=== PATIENT | male | born 1960 | race African-American/Black ===

== ENCOUNTER 2017-07-29 12:04 | Inpatient (IN) | payer OTHER ==
--- NOTE | 2017-07-29 12:05 | HP ---
SUPERVISING PHYSICIAN: Tramaine Peter MD CHIEF COMPLAINT: Chills and fever for the past three days. HISTORY OF PRESENT ILLNESS: This is a 57 year-old male patient who was has been having bouts of fever with severe chills since Wednesday. He went to see his primary care physician, Dr. Navjot Chen, at [facility] and a chest x-ray was done which revealed a left lower lobe pneumonia. He also had a white count of 16.6 with a negative flu swab. He was running a temperature of greater than 104 at the clinic. He also complained of muscle aches and pain and Dr. Chen called me for admission to the hospital. PAST MEDICAL HISTORY: 1. Left foot neuropathy. PAST SURGICAL HISTORY: None. OUTPATIENT MEDICATIONS: 1. Gabapentin. ALLERGIES: NO KNOWN DRUG ALLERGIES. FAMILY HISTORY: His father had heart problems and cancer of unknown type. His mother had hypertension. SOCIAL HISTORY: He is retired from the [employer]. He works part-time at [employer] He has smoked cigarettes for about 30 years but over the last month or so he has decreased his smoking to about 6 to 7 cigarettes daily. He drinks alcohol on a social basis only and denies any illicit drug use. REVIEW OF SYSTEMS: GENERAL: Positive for fever and fatigue, negative for weight changes. HEENT: Positive for some sinus and cold-like symptoms. Negative for ear pain, sore throat or vision changes. RESPIRATORY: Positive for mild dry cough but has significant shortness of breath with any exertion. Denies wheezing. CARDIOVASCULAR: Denies chest pain, palpitations or tachycardia. GI: Denies abdominal pain, nausea, vomiting, diarrhea, constipation. : Denies hematuria , dysuria or polyuria. SKIN: Denies lesions or rashes. NEURO: Positive for weakness, negative for headaches or seizures. PHYSICAL EXAMINATION: VITAL SIGNS: Temperature 102.5, pulse rate 134, blood pressure at the clinic was 88/60, this has improved now to 115/73. Respiratory rate is 20. 02 saturation 91% on room air. GENERAL: This is a 57 y over -[place] male who is lying in his hospital bed. He is in mild respiratory distress. HEENT: Normocephalic and atraumatic. Pupils are equal and reactive. Oropharynx is clear. Oral mucous membranes are dry. NECK: Supple without mass. CHEST: Coarse rhonchi scattered throughout, very diminished at the bases, especially on the left side and he does have a few scattered expiratory wheezes on that left side. He is slightly tachypneic; with a respiratory rate about 22 breaths per minute. CARDIOVASCULAR: Tachycardiac rate, regular rhythm. ABDOMEN: Soft, nondistended, non-tender. Bowel sounds are positive. EXTREMITIES: No cyanosis, clubbing, or edema. INTEGUMENT: No lesions or rashes noted. NEUROLOGIC: He is awake, alert, and oriented x3. LABORATORY: As per the history of present illness plus his sodium is 134, potassium 3.6, chloride 101, BUN 40, creatinine 1.64. His baseline creatinine here is approximately 1. His lactic acid is 1.4. His influenza swab via PCR is negative. Chest x-ray shows infiltrates at the posterior heart on the lateral view and positive for left lower lobe pneumonia. All other labs and films have been reviewed via the EMR. ASSESSMENT: 1. Sepsis related to left lower lobe pneumonia. The patient meets criteria with a temperature of 102.5, heart rate of 134, respiratory rate 22, WBC of 16.6. 2. Dehydration most likely secondary to #1, currently being given aggressive fluids. 3. Febrile illness most likely secondary to #1. 4. Acute renal failure with creatinine of 1.64 and most likely secondary to infectious process as well as dehydration. 5. Left leg neuropathy. PLAN: We will admit patient to the hospital. I have initiated pneumonia guidelines, presently giving him some fluids and I have started him on Rocephin b.i.d. as well as azithromycin IV antibiotics, Protonix for ulcer prophylaxis as well as Lovenox for DVT prophylaxis. I have ordered aggressive pulmonary hygiene. I am going to give him a low-dose of steroids and he will be on breathing treatments, will scheduled them as needed, routine labs for in the morning as well as a chest x-ray. We have started his home medications and will known to to monitor the patient closely and follow as needed. Dr. Peter is the collaborating physician and available for consultation. #[id number] [facility]
[2017-07-29] MEDS ORDERED: ALBUTEROL SULFATE 2.5 MG/3 ML VIAL NEB PRN (12:09)
[2017-07-29] MEDS ORDERED: SODIUM CHLORIDE 0.9% 1000ML 1,000 ML IVS ONE (12:09)
[2017-07-29] MEDS ORDERED: SODIUM CHLORIDE 0.9% (FLUSH) 10 ML SYG IV PRN (12:09)
[2017-07-29] MEDS: IV SET AND CAP CHANGE INJ INJ SCH (12:30)
[2017-07-29] MEDS: ENOXAPARIN SODIUM 40 MG/0.4 ML SYG SUBCU SCH (13:00)
[2017-07-29] MEDS ORDERED: PANTOPRAZOLE SODIUM IV 40 MG VIAL IV SCH (13:00)
[2017-07-29] MEDS ORDERED: AZITHROMYCIN IV 500 MG in SODIUM CHLORIDE 0.9% 250ML 250 ML IVPB SCH (13:30)
[2017-07-29] MEDS ORDERED: SODIUM CHLORIDE 0.9% 250ML 250 ML ONE (14:11)
[2017-07-29] MEDS ORDERED: AZITHROMYCIN IV 500 MG VIAL IVPB ONE (14:12)
[2017-07-29] MEDS: ACETAMINOPHEN 325 MG TAB PO PRN (15:17)
[2017-07-29] MEDS: ALBUTEROL SULFATE 2.5 MG/3 ML VIAL NEB SCH ×3 (15:52→21:30)
[2017-07-29] MEDS ORDERED: methylPREDNISolone SODIUM SUC 125 MG/2 ML VIAL IV ONE (16:05)
[2017-07-29] MEDS: GABAPENTIN 100 MG CAP PO SCH ×2 (16:21→20:52)
[2017-07-29] MEDS ORDERED: guaiFENesin ER TAB 600 MG TAB ONE (19:39)
[2017-07-29] MEDS ORDERED: cefTRIAXone SODIUM 1 GM VIAL ONE (19:39)
[2017-07-29] MEDS ORDERED: SODIUM CHL 0.9% 50ML MIN-BAG+ 50 ML IVPB ONE (19:39)
[2017-07-29] MEDS: cefTRIAXone SODIUM 1 GM in SODIUM CHL 0.9% 50ML MIN-BAG+ 50 ML IVPB SCH (20:52)
[2017-07-29] MEDS: guaiFENesin ER TAB 600 MG TAB PO SCH (20:52)
[2017-07-29] MEDS: SODIUM CHLORIDE 0.9% (FLUSH) 10 ML SYG IV SCH (20:55)
[2017-07-29] MEDS ORDERED: PANTOPRAZOLE SODIUM TAB 40 MG PO ONE (21:17)
[2017-07-29] MEDS ORDERED: methylPREDNISolone SODIUM SUC 40 MG/ML VIAL ONE (22:08)
[2017-07-30] MEDS: methylPREDNISolone SODIUM SUC 40 MG/ML VIAL IV SCH ×2 (00:30→13:01)
[2017-07-30] MEDS: PANTOPRAZOLE SODIUM TAB 40 MG PO SCH (06:03)
--- NOTE | 2017-07-30 06:58 | RAD ---
EXAM DESCRIPTION: Chest,2 Views CLINICAL HISTORY: Pneumonia COMPARISON: July 26, 2011 FINDINGS: The cardiomediastinal silhouette is unremarkable. Airspace consolidation is noted in the posterior lung bases on the lateral view, likely involving the left lung base. No pleural effusion. A small nodular opacity projects over the right lung apex. There is no pneumothorax or acute fracture. IMPRESSION: Left basilar pneumonia. Follow-up chest radiograph after treatment is recommended to document complete resolution. Small right apical lung nodule, chest CT should be considered for further evaluation. Electronically signed by: Asif Child MD 07/30/2017 6:57 AM [facility]
--- NOTE | 2017-07-30 06:58 | RAD ---
EXAM DESCRIPTION: Chest,2 Views CLINICAL HISTORY: Pneumonia COMPARISON: July 26, 2011 FINDINGS: The cardiomediastinal silhouette is unremarkable. Airspace consolidation is noted in the posterior lung bases on the lateral view, likely involving the left lung base. No pleural effusion. A small nodular opacity projects over the right lung apex. There is no pneumothorax or acute fracture. IMPRESSION: Left basilar pneumonia. Follow-up chest radiograph after treatment is recommended to document complete resolution. Small right apical lung nodule, chest CT should be considered for further evaluation. Electronically signed by: Asif Child MD 07/30/2017 6:57 AM [facility]
--- NOTE | 2017-07-30 06:58 | RAD ---
EXAM DESCRIPTION: Chest,2 Views CLINICAL HISTORY: Pneumonia COMPARISON: July 26, 2011 FINDINGS: The cardiomediastinal silhouette is unremarkable. Airspace consolidation is noted in the posterior lung bases on the lateral view, likely involving the left lung base. No pleural effusion. A small nodular opacity projects over the right lung apex. There is no pneumothorax or acute fracture. IMPRESSION: Left basilar pneumonia. Follow-up chest radiograph after treatment is recommended to document complete resolution. Small right apical lung nodule, chest CT should be considered for further evaluation. Electronically signed by: Asif Child MD 07/30/2017 6:57 AM [facility]
[2017-07-30] MEDS: ALBUTEROL SULFATE 2.5 MG/3 ML VIAL NEB SCH ×4 (07:53→20:40)
[2017-07-30] MEDS ORDERED: SODIUM CHL 0.9% 50ML MIN-BAG+ 50 ML IVPB ONE ×2 (08:26→19:12)
[2017-07-30] MEDS ORDERED: cefTRIAXone SODIUM 1 GM VIAL ONE ×2 (08:26→19:12)
[2017-07-30] MEDS: cefTRIAXone SODIUM 1 GM in SODIUM CHL 0.9% 50ML MIN-BAG+ 50 ML IVPB SCH ×2 (09:02→20:30)
[2017-07-30] MEDS: ENOXAPARIN SODIUM 40 MG/0.4 ML SYG SUBCU SCH (09:02)
[2017-07-30] MEDS: GABAPENTIN 100 MG CAP PO SCH ×3 (09:02→20:30)
[2017-07-30] MEDS: SODIUM CHLORIDE 0.9% (FLUSH) 10 ML SYG IV SCH ×2 (09:02→20:30)
[2017-07-30] MEDS: guaiFENesin ER TAB 600 MG TAB PO SCH ×2 (09:02→20:30)
[2017-07-30] MEDS: AZITHROMYCIN 250 MG TAB PO SCH (13:02)
--- NOTE | 2017-07-30 15:36 | PCM.CORE ---
Physician DVT/VTE - Nurse DVT Assessment & Total Each Risk Factor Represents 3 Points: Medical PT with Hx of AL, CHF, Severe infection/sepsis Each Risk Factor Represents 1 Point: Age 41-60 Each Risk Factor is 1 Point: Serious Lung disease (pnemonia <1month, COPD, emphysema,etc) DVT Assessment Score: 5 - 5 or more Very High Risk Treatments: Early Ambulation *, Sequential Compression Device Pharmacological: Enoxaparin 40mg SQ Daily
--- NOTE | 2017-07-30 18:27 | PN ---
DATE: 07/30/17 SUPERVISING PHYSICIAN: Tramaine Peter M.D. SUBJECTIVE: The patient has been afebrile since admission. He continues to have a productive cough. Notes that he feels a little bit better, but continues to have some body aches and some chills. OBJECTIVE: VITAL SIGNS: T max 99.6, pulse 93, blood pressure 133/76, respirations 18, satting 97% on room air. I's and O's show a positive balance of 120 with 970 in, 850 out. Weight is 73.6 kg. LUNGS: Lung sounds are notable for continued rhonchi heard more prominent on the left posterior aspect with no notable wheezing. HEART: Regular rate and rhythm. ABDOMEN: Soft, non- tender. Positive bowel sounds. EXTREMITIES: No clubbing, cyanosis or edema. NEUROLOGIC: He is alert and oriented times three. LABORATORY: White count 13,700, hemoglobin 10.6, hematocrit 32.3, platelet count 198,000. Differential does show a left shift. Chemistries today show normal electrolytes with potassium 3.7, BUN 30, creatinine 1.35, glucose 202, calcium 8.3. MICROBIOLOGY: Sputum culture is still pending. Blood cultures show a positive blood culture on 1 aerobic bottle, the remaining blood cultures remain negative at 24 hours. Sputum gram stain showed many WBCs with gram positive cocci in chains and pairs. RADIOLOGY: Chest x-ray today two view chest shows left basilar pneumonia with a small right apical lung nodule. ASSESSMENT: 1. Left lower lobe pneumonia community acquired with positive blood cultures concerning for possible Streptococcus pneumoniae. 2. Sepsis secondary to left lower lobe pneumonia with bacteremia with gram positive cocci with cultures pending with concerns for possible Streptococcus pneumoniae. 3. Dehydration secondary to #1 showing improvement after given IV fluids. 4. Febrile illness secondary to #1. 5. Acute renal failure with creatinine 1.64 exacerbated by underlying sepsis process and prerenal azotemia showing improvement with IV fluids. 6. Left leg neuropathy. PLAN: Will continue with aggressive pulmonary hygiene and antibiotic therapy to include azithromycin and Rocephin. Given that he had a set of blood cultures positive, will continue with Rocephin and azithromycin given suspect possible Strep pneumoniae and await those final culture results. Will start tapering his steroid dose today to a p.o. dose as he is showing good improvement and no longer has any significant wheezing. Will plan to repeat laboratory studies in the morning and monitor his cultures, including sputum and blood cultures closely to further target antibiotic therapy as those culture results become available. Until discharge, will continue to monitor and treat appropriately. #[id number] [facility]
[2017-07-31] MEDS: PANTOPRAZOLE SODIUM TAB 40 MG PO SCH (06:15)
[2017-07-31] MEDS: ALBUTEROL SULFATE 2.5 MG/3 ML VIAL NEB SCH ×4 (07:20→20:46)
[2017-07-31] MEDS ORDERED: SODIUM CHL 0.9% 50ML MIN-BAG+ 50 ML IVPB ONE ×2 (08:16→10:38)
[2017-07-31] MEDS ORDERED: cefTRIAXone SODIUM 1 GM VIAL ONE ×2 (08:17→10:39)
[2017-07-31] MEDS: cefTRIAXone SODIUM 1 GM in SODIUM CHL 0.9% 50ML MIN-BAG+ 50 ML IVPB SCH (08:22)
[2017-07-31] MEDS: guaiFENesin ER TAB 600 MG TAB PO SCH ×2 (08:23→20:31)
[2017-07-31] MEDS: SODIUM CHLORIDE 0.9% (FLUSH) 10 ML SYG IV SCH ×2 (08:23→21:47)
[2017-07-31] MEDS: ASPIRIN EC 81 MG TAB PO SCH (08:23)
[2017-07-31] MEDS: ENOXAPARIN SODIUM 40 MG/0.4 ML SYG SUBCU SCH (08:23)
[2017-07-31] MEDS: GABAPENTIN 100 MG CAP PO SCH ×4 (08:23→20:31)
[2017-07-31] MEDS ORDERED: cefTRIAXone SODIUM 1 GM in SODIUM CHL 0.9% 50ML MIN-BAG+ 50 ML IVPB ONE (08:28)
[2017-07-31] MEDS ORDERED: VANCOMYCIN PER PHARMACY IVPB SCH (08:30)
[2017-07-31] MEDS ORDERED: cefTRIAXone SODIUM 2 GM in SODIUM CHL 0.9% 100ML MINI-BAG 100 ML IVPB SCH (08:30)
[2017-07-31] MEDS ORDERED: POTASSIUM CHLORIDE 20 MEQ TAB PO ONE (08:31)
[2017-07-31] MEDS: ACETAMINOPHEN 325 MG TAB PO PRN ×2 (08:37→20:30)
--- NOTE | 2017-07-31 09:04 | RAD ---
PROCEDURE: Chest,2 Views CLINICAL HISTORY: pneumonia INDICATION: Same as above COMPARISON: 07/30/2017 and 07/26/2011 TECHNIQUE: PA and and lateral chest radiographs were obtained. FINDINGS: Note is again made of a partially obscured 8 mm right apical lung nodule, unchanged . There is no significant interval change in the mild left basilar infiltrate/atelectasis There are no pneumothoraces or pleural effusions. Underlying changes of COPD are again noted The cardiomediastinal silhouette is stable. IMPRESSION: Note is again made of a partially obscured 8 mm right apical lung nodule, unchanged . This finding can be further assessed with a dedicated CT of the chest . There is no significant interval change in the mild left basilar infiltrate/atelectasis Electronically signed by: Maurice Walker MD 07/31/2017 9:02 AM [facility] Workstation: [id number]
[2017-07-31] MEDS ORDERED: SODIUM CHLORIDE 0.9% 250ML 250 ML ONE ×2 (10:38→20:12)
[2017-07-31] MEDS ORDERED: VANCOMYCIN HCL INJ 1,000 MG VIAL IVPB ONE ×2 (10:39→20:13)
[2017-07-31] MEDS: VANCOMYCIN HCL INJ 1,000 MG in SODIUM CHLORIDE 0.9% 250ML 250 ML IVPB SCH ×2 (12:01→22:53)
[2017-07-31] MEDS: AZITHROMYCIN 250 MG TAB PO SCH (15:36)
--- NOTE | 2017-07-31 17:52 | PN ---
DATE: 07/31/17 SUPERVISING PHYSICIAN: Tramaine Peter M.D. SUBJECTIVE: The patient is resting in bed. He has no complaints. He says he feels better. He has been tolerating his diet. He has been afebrile since admission. OBJECTIVE: VITAL SIGNS: Temperature 97.9, pulse 78, blood pressure 112/68, respirations 16, satting 97% on room air. I's and O's show a positive balance of 430 with 1180 in, 750 out. Weight is 74.2 kg. CHEST: Lungs are fairly clear except for just an area of rhonchi heard on the posterior left lower lobe , but no wheezing. HEART: Regular rate and rhythm. ABDOMEN: Soft, non-tender. Positive bowel sounds. EXTREMITIES: No clubbing, cyanosis or edema. NEUROLOGIC: He is alert and oriented times three. LABORATORY: White count is still elevated at 14,200, hemoglobin is stable at 9.9 and 28.8 with platelets 214,000. Differential continues to show a left shift. Chemistries show just a mild hypokalemia with potassium 3.4, BUN 31, creatinine is down to 1.06. Serum osmolality 287, magnesium 2.9, calcium 8.8. MICROBIOLOGY: Sputum culture preliminary shows gram positive cocci. He had 1 aerobic bottle that showed gram positive cocci, the other bottles remain negative at 48 hours. RADIOLOGY: Repeat chest x-ray today per radiology interpretation of two view chest shows note is made again of partially obscured 8 mm right apical lung nodule unchanged and no significant interval change in the mid left basilar infiltrate/atelectasis. ASSESSMENT: 1. Left lower lobe pneumonia community acquired with positive blood cultures concerning for possible Streptococcus pneumoniae showing gram positive cocci awaiting final culture results. 2. Sepsis with bacteremia secondary to left lower lobe pneumonia with gram positive cocci with cultures pending with concern for possible Streptococcus pneumoniae. 3. Dehydration secondary to #1, improved with IV fluids. 4. Febrile illness now afebrile for 24 hours. 5. Acute renal insufficiency with creatinine of 1.64 with some prerenal azotemia exacerbated by underlying sepsis, improved with IV fluids. 6. An 8 mm right apical lung nodules needing close followup with CT scan. 7. Left foot neuropathy. PLAN: I will continue with antibiotic therapy. Given that he has gram positive cocci in his blood cultures, will add additional coverage with vancomycin. Will await final culture results and sensitivity to further target antibiotic therapy. He is no longer having any wheezing. He has been tapered off his steroids and has continued to show good improvement. Will plan to repeat his labs in the morning and await final culture results to further target antibiotic therapy. Until then, continue to monitor and treat appropriately. #[id number] [facility]
[2017-07-31] MEDS ORDERED: SODIUM CHL 0.9% 100ML MINI-BAG 100 ML IVPB ONE (20:13)
[2017-07-31] MEDS: cefTRIAXone SODIUM 2 GM in SODIUM CHL 0.9% 100ML MINI-BAG 100 ML IVPB SCH (21:47)
[2017-08-01] MEDS: PANTOPRAZOLE SODIUM TAB 40 MG PO SCH (06:16)
[2017-08-01] MEDS ORDERED: SODIUM CHL 0.9% 100ML MINI-BAG 100 ML IVPB ONE ×2 (07:36→19:17)
[2017-08-01] MEDS: ALBUTEROL SULFATE 2.5 MG/3 ML VIAL NEB SCH ×4 (07:56→20:37)
[2017-08-01] MEDS: guaiFENesin ER TAB 600 MG TAB PO SCH ×2 (09:14→20:54)
[2017-08-01] MEDS: ENOXAPARIN SODIUM 40 MG/0.4 ML SYG SUBCU SCH (09:15)
[2017-08-01] MEDS: GABAPENTIN 100 MG CAP PO SCH ×4 (09:15→20:55)
[2017-08-01] MEDS: ASPIRIN EC 81 MG TAB PO SCH (09:15)
[2017-08-01] MEDS: cefTRIAXone SODIUM 2 GM in SODIUM CHL 0.9% 100ML MINI-BAG 100 ML IVPB SCH ×2 (09:16→21:00)
[2017-08-01] MEDS: SODIUM CHLORIDE 0.9% (FLUSH) 10 ML SYG IV SCH ×2 (09:20→20:56)
[2017-08-01] MEDS ORDERED: VANCOMYCIN HCL INJ 1,000 MG VIAL IVPB ONE (09:44)
[2017-08-01] MEDS ORDERED: SODIUM CHLORIDE 0.9% 250ML 250 ML ONE (09:44)
[2017-08-01] MEDS: VANCOMYCIN HCL INJ 1,000 MG in SODIUM CHLORIDE 0.9% 250ML 250 ML IVPB SCH (10:16)
[2017-08-01] MEDS: AZITHROMYCIN 250 MG TAB PO SCH (13:19)
[2017-08-01] MEDS: IV SET AND CAP CHANGE INJ INJ SCH (13:23)
--- NOTE | 2017-08-01 13:34 | PN ---
DATE: 08/01/17 SUPERVISING PHYSICIAN: Tramaine Peter M.D. SUBJECTIVE: The patient is lying in bed. He is asleep. He awakens easily. Has no complaints of nausea, vomiting, chest pain, shortness of breath, wheezing , abdominal pain or diarrhea. He complains of his mouth hurting but he says it is because his dentures do not fit and he has an appointment to see Dr. Rodriguez after discharge. OBJECTIVE: VITAL SIGNS: He is afebrile, heart rate 92, blood pressure 122/64, respiratory rate 18, O2 sat is 100% on room air. RESPIRATORY: Essentially clear to auscultation bilaterally, slightly diminished at the bases on the left lower lung. CARDIAC: Regular rate and rhythm. There are no discernible murmurs noted at this time. GASTROINTESTINAL: Abdomen is soft, nondistended, non-tender. Bowel sounds are positive. EXTREMITIES: No cyanosis, clubbing or edema. NEUROLOGIC: He is awake, alert and oriented times three. LABORATORY: WBCs have normalized to 7.1 with hemoglobin 9.8, hematocrit 29.7. Electrolytes are basically within normal limits with a slightly elevated BUN of 26 and creatinine of 1.01. Final sputum culture is positive for Streptococcus pneumoniae. It is pansensitive to all antibiotics. Final aerobic blood culture also shows Streptococcus pneumoniae. It is pansensitive to all antibiotics tested. All other labs and films have been reviewed via the EMR. ASSESSMENT: 1. Left lower lobe pneumonia community acquire with positive blood cultures for Streptococcus pneumoniae that are pansensitive to antibiotics tested. 2. Sepsis with bacteremia secondary to left lower lobe pneumonia that is positive for Streptococcus pneumoniae. 3. Dehydration secondary to #1 that has improved. 4. Febrile illness, has now been afebrile for over 48 hours. 5. Acute renal insufficiency with a creatinine that has improved to 1.01. 6. An 8 mm right apical lung nodule that needs close followup with a CT scan. 7. Left foot neuropathy. PLAN: We will continue with the present antibiotics of azithromycin and Rocephin. I have discontinued the vancomycin. I spoke with Dr. Nicolas, Infectious Diseases physician, and she recommended that he continue on the present IV antibiotic therapy and discontinuance of the vancomycin. He will need close followup with her after discharge. He will also need a LYNN per her recommendation as an outpatient. After discharge, he will need 14 total days of IV antibiotic therapy. He can have Rocephin 2 grams daily for a total of 14 days of Rocephin treatment. We can get that set up tomorrow as an outpatient. I have ordered routine labs and an x-ray in the morning. He can followup with Dr. Chen for the scheduling of the LYNN, an appointment with Dr. Nicolas, and a CT scan of the chest in regard to the lung nodule. Other than that, we will continue to monitor the patient closely and follow as needed. Anticipate discharge tomorrow after his outpatient treatment has been arranged. Dr. Peter is the collaborating physician available for consultation. #[id number] [facility]
[2017-08-02] MEDS: PANTOPRAZOLE SODIUM TAB 40 MG PO SCH (06:21)
--- NOTE | 2017-08-02 07:05 | RAD ---
EXAM: Two view chest. INDICATION: Pneumonia. COMPARISON: Chest x-ray: 07/31/2017. FINDINGS: Cardiac silhouette: Unremarkable. Riya: Unremarkable. Lobar consolidation: Left lower lobe Pleural effusion: None. Pneumothorax: None. Other: The previously described nodular opacities along the right upper lobe is not well-seen on this exam Bones: Unremarkable. Other: None. IMPRESSION: Left lower lobe pneumonia Electronically signed by: Damon Sanchez MD 08/02/2017 7:03 AM [facility] Workstation: [id number]
[2017-08-02] MEDS ORDERED: SODIUM CHL 0.9% 100ML MINI-BAG 100 ML IVPB ONE ×2 (07:11→21:33)
[2017-08-02] MEDS: ALBUTEROL SULFATE 2.5 MG/3 ML VIAL NEB SCH ×4 (08:44→20:01)
[2017-08-02] MEDS ORDERED: NYSTATIN SUSPENSION 5 ML UD MT SCH (09:15)
[2017-08-02] MEDS ORDERED: NYSTATIN SUSPENSION 5 ML UD ONE (09:30)
[2017-08-02] MEDS: ENOXAPARIN SODIUM 40 MG/0.4 ML SYG SUBCU SCH (09:32)
[2017-08-02] MEDS: guaiFENesin ER TAB 600 MG TAB PO SCH ×2 (09:33→21:30)
[2017-08-02] MEDS: ASPIRIN EC 81 MG TAB PO SCH (09:33)
[2017-08-02] MEDS: GABAPENTIN 100 MG CAP PO SCH ×3 (09:33→21:30)
[2017-08-02] MEDS: SODIUM CHLORIDE 0.9% (FLUSH) 10 ML SYG IV SCH ×2 (09:33→21:30)
[2017-08-02] MEDS: cefTRIAXone SODIUM 2 GM in SODIUM CHL 0.9% 100ML MINI-BAG 100 ML IVPB SCH ×2 (09:34→21:37)
[2017-08-02] MEDS ORDERED: cefTRIAXone SODIUM 1 GM VIAL ONE (10:48)
[2017-08-02] MEDS: AZITHROMYCIN 250 MG TAB PO SCH (13:01)
[2017-08-02] MEDS: LIDOCAINE VISCOUS 2% 15 ML, diphenhydrAMINE HCL 37.5 MG, NYSTATIN SUSPENSION 15 ML, ALU... PO PRN ×8 (13:06→17:31)
--- NOTE | 2017-08-02 14:37 | PN ---
SUPERVISING PHYSICIAN: Gaurang Arambula MD DATE: 08/02/17 SUBJECTIVE: Mr. Betts is doing well. He has no complaints overnight. He denies shortness of breath or fevers. He does continue to complain of some soreness in his mouth. He got a little bit of Nystatin swish and swallow earlier this morning and said it did help a little bit, however, I do not see any thrush in his mouth at this time. OBJECTIVE: VITAL SIGNS: Blood pressure 117/72. Heart rate 87. Respiratory rate 16. Temperature 98.9. Oxygen saturation 95%. GENERAL: Mr. Betst is a 57-year-old male in no active distress. HEENT: Normocephalic, atraumatic. Pupils are equal and reactive. No nasal drainage. Oral mucosa is moist. NECK: Supple. Midline trachea. No jugular venous distention. CHEST: Symmetrical with equal rise and fall of the chest with inspiration and expiration. Lungs sounds with some diminishing in the left lower base. CARDIOVASCULAR: Regular rate and rhythm. Normal S1, S2. ABDOMEN: Soft. Positive bowel sounds. No tenderness to palpation. GENITOURINARY: Deferred. LOWER EXTREMITIES: No significant edema. Capillary refill is within normal limits. NEUROLOGIC: The patient is alert. LABORATORY: White count 9.3, hemoglobin 10.2, hematocrit 31.0, platelet count 291. Chemistries show sodium 141, potassium 3.4, chloride 108, CO2 24, BUN 19, creatinine 0.93. Glucose 99, calcium 8.4. RADIOLOGY: Chest x-ray continues to show left lower lobe consolidation. MICROBIOLOGY: Positive for Streptococcal pneumoniae in sputum as well as aerobic bottle. ASSESSMENT: 1. Left lower lobe pneumonia, pneumococcal via sputum culture as well as positive blood culture. 2. Acute kidney injury secondary to dehydration, improved. 3. Right apical lung nodule. 4. Mouth pain. PLAN: Given the sensitivities on cultures, I am continuing Rocephin. Dr. Nicolas has already been consulted and he will followup with her upon discharge. She has recommended an echocardiogram. Therefore, Dr. De La Fuente has been consulted and should come tomorrow for echocardiogram. I do not hear any murmur at this time, however, we will let the equipment inspector evaluate this. I have ordered some Magic Mouth. Given the fact that I do not see any thrush, I do not feel like his mouth pain is secondary to thrush at this time. We will see how this works for his mouth pain. Once again, he does have an appointment with Dr. Gutierrez for fitting of his dentures. Will recheck labs and his chest x-ray in the morning, and hopefully discharge home. #[id number] [facility]
[2017-08-03] MEDS: PANTOPRAZOLE SODIUM TAB 40 MG PO SCH (06:10)
[2017-08-03] MEDS: LIDOCAINE VISCOUS 2% 15 ML, diphenhydrAMINE HCL 37.5 MG, NYSTATIN SUSPENSION 15 ML, ALU... PO PRN ×4 (07:28)
--- NOTE | 2017-08-03 07:34 | RAD ---
EXAM DESCRIPTION: Chest,1 View CLINICAL HISTORY: pneumonia COMPARISON: August 02, 2017 FINDINGS: The cardiomediastinal silhouette is unremarkable. There is alveolar opacity in the left lung base posterior to the left side of the heart. No pleural effusion or right-sided airspace consolidation. The bronchovascular markings are within normal limits, and the lungs are not hyperinflated. There is no pneumothorax or acute fracture. IMPRESSION: Airspace consolidation in the left lung base. Findings are consistent with provided history of pneumonia, not significantly changed from yesterday's exam. Electronically signed by: Asif Child MD 08/03/2017 7:33 AM [facility]
[2017-08-03] MEDS: ALBUTEROL SULFATE 2.5 MG/3 ML VIAL NEB SCH ×2 (07:42→11:53)
[2017-08-03] MEDS ORDERED: SODIUM CHL 0.9% 100ML MINI-BAG 100 ML IVPB ONE (07:43)
[2017-08-03] MEDS: GABAPENTIN 100 MG CAP PO SCH ×2 (08:59→15:10)
[2017-08-03] MEDS: ASPIRIN EC 81 MG TAB PO SCH (08:59)
[2017-08-03] MEDS: guaiFENesin ER TAB 600 MG TAB PO SCH (08:59)
[2017-08-03] MEDS: cefTRIAXone SODIUM 2 GM in SODIUM CHL 0.9% 100ML MINI-BAG 100 ML IVPB SCH (09:00)
[2017-08-03] MEDS: SODIUM CHLORIDE 0.9% (FLUSH) 10 ML SYG IV SCH (09:00)
[2017-08-03] MEDS: ENOXAPARIN SODIUM 40 MG/0.4 ML SYG SUBCU SCH (09:00)
[2017-08-03 14:08] VITALS: BP 100/60; TEMP 98.7; O2SAT 99
--- NOTE | 2017-08-03 17:23 | DS ---
COLLABORATING PHYSICIAN: Gaurang Arambula M.D. ADMISSION DIAGNOSIS: 1. Sepsis related to left lower lobe pneumonia. 2. Acute kidney injury secondary to dehydration. 3. Left leg neuropathy. DISCHARGE DIAGNOSIS: 1. Pneumococcal pneumonia of the left lower lobe with associated pneumococcal bacteremia. 2. Acute kidney injury, resolved. 3. Right apical lung nodule. 4. Mouth pain. HOSPITAL COURSE: This is a 57 year-old male patient who presented to the hospital on 07/29/17 due to the fact he was found to have a left lower lobe pneumonia. He had an elevated white count of 16.6. These were seen by Dr. Chen in the outpatient setting, therefore he was directly admitted to the hospital. Upon arrival to the hospital, he had labs and x-rays which showed left lower lobe pneumonia as well as leukocytosis. He also had an acute kidney injury at the time. He was started on IV fluids as well as IV antibiotics. His sputum culture as well as blood cultures eventually grew out Streptococcus pneumoniae. At that point, Dr. Nicolas, the Infectious Disease physician in [place], was consulted. She suggested a total of 14 days IV antibiotic therapy with 2 grams of Rocephin 2 times a day in the hospital and then once discharged once a day. She also wanted to see the patient in the outpatient setting. The patient progressed and leukocytosis improved. Additionally another suggestion by Dr. Nicolas was to get an echocardiogram. This was done on 08/03/[address] De La Fuente. He called me and informed me that the echocardiogram was normal and therefore today we will discharge the patient home. PLAN: He has been instructed to come back to the hospital for IV antibiotic infusions once daily with the Rocephin. He has also been informed that he will need to followup with Dr. Nicolas as well as his primary care physician. DISCHARGE MEDICATIONS: No new medications due to the fact that he is going to be utilizing IV antibiotics. Condition is good. Followup with Dr. Nicolas as scheduled as well as Dr. Chen in 1 to 2 weeks. Activity as tolerated. Diet as usual. #[id number] [facility]
== END 2017-08-03 16:33 | disposition home or self-care (01) | DRG 871 ==
LOC: MS 12:04
PROVIDERS: ADMIT Nurse Practitioner Acute Care; ATTEND Nurse Practitioner
DX: A40.3 Sepsis due to Streptococcus pneumoniae (principal); J13 Pneumonia due to Streptococcus pneumoniae; N17.9 Acute kidney failure, unspecified; E86.0 Dehydration; G62.9 Polyneuropathy, unspecified; R91.1 Solitary pulmonary nodule; K13.79 Other lesions of oral mucosa; F17.210 Nicotine dependence, cigarettes, uncomplicated; Z79.899 Other long term (current) drug therapy